=== PATIENT | female | born 1945 | race Caucasian/White ===

== ENCOUNTER 2018-07-10 11:30 | Outpatient (CLI) | payer MEDICARE, OTHER ==
--- NOTE | 2018-07-10 12:46 | XRAY Report ---
Reason: HIP PAIN,LEFT Procedure Date: 07/10/2018 Accession Number: [id number] / [id number] Procedure: WCP - Hip w/Pelvis 2-3V LT CPT Code: FULL RESULT: EXAM: LEFT HIP RADIOGRAPHY EXAM DATE: 07/10/2018 11:50 AM. CLINICAL HISTORY: Hip pain, left. COMPARISON: HIP 2 VIEW LT 07/05/2016 2:47 PM. TECHNIQUE: 2 views. FINDINGS: Bones: Normal. No fractures or bone lesion. Joints: Status post bilateral total hip arthroplasty. Unchanged from 2017 and seen on the AP view is the suggestion of a possible subtrochanteric periprosthetic fracture line laterally. Based on the appearance of the frog-leg view on today's study as well as the previous study, this appearance is possibly due to overlap of heterotopic bone. Otherwise, there is no definite evidence of hardware failure. Soft Tissues: Normal. No soft tissue swelling. IMPRESSION: Stable appearance of a periprosthetic lucency as described. If the patient's pain dates back to 2017, bone scan could be considered. Otherwise, there is no interval change to suggest new hardware loosening or fracture. RADIA
== END 2018-07-10 11:31 | disposition home or self-care (01) ==
LOC: DI.WCP 11:30
PROVIDERS: ATTEND Physician Assistant Medical
DX: M25.552 Pain in left hip (principal); Z96.642 Presence of left artificial hip joint

== ENCOUNTER 2018-07-18 12:00 | Outpatient (CLI) | payer MEDICARE, OTHER ==
--- NOTE | 2018-07-19 11:27 | Nuclear Medicine Report ---
Reason: HIP PAIN,LEFT Procedure Date: 07/18/2018 Accession Number: [id number] / [id number] Procedure: NM - Bone Limited CPT Code: FULL RESULT: EXAM: TRIPLE-PHASE BONE SCAN LIMITED EXAM DATE: 07/18/2018 04:07 PM. CLINICAL HISTORY: HIP PAIN,LEFT. COMPARISON: HIP W/PELVIS 2-3V LT 07/10/2018 11:25 AM. TECHNIQUE: Patient was injected with 32.7 mCi of technetium 99m MDP intravenously with flow phase gamma camera imaging anteriorly over the pelvis and hips, 5 seconds per frame for 1 minute. Subsequently, blood pool images of the pelvis and hips were obtained. The patient returned 3 hours later for multiple spot images of the pelvis and hips. FINDINGS: Flow Phase: There is symmetric flow to bilateral extremities. Blood Pool Phase: Images show no focal increased uptake. Delayed Phase: On bone scan images, there is asymmetrically greater activity around the left hip prosthesis compared to the right, particularly at the distal tip and in the greater trochanter region. IMPRESSION: 1. No abnormal hyperemia. 2. Delayed phase asymmetrically increased activity around the femoral component of the left hip prosthesis. Hardware loosening is a possibility for this pattern. RADIA
== END 2018-07-18 12:01 | disposition home or self-care (01) ==
LOC: DI 12:00
PROVIDERS: ATTEND Physician Assistant Medical
DX: M25.552 Pain in left hip (principal); Z96.643 Presence of artificial hip joint, bilateral
CPT/HCPCS: 78300

== ENCOUNTER 2018-07-18 17:19 | Outpatient (CLI) | payer MEDICARE, OTHER ==
--- NOTE | 2018-07-19 11:31 | XRAY Report ---
Reason: OSTEOARTHRITIS,HIP,LEFT Procedure Date: 07/18/2018 Accession Number: [id number] / [id number] Procedure: XR - Hip w/Pelvis 2-3V LT CPT Code: FULL RESULT: EXAM: LEFT HIP RADIOGRAPHY EXAM DATE: 07/18/2018 05:33 PM. CLINICAL HISTORY: Osteoarthritis, hip, left. COMPARISON: HIP W/PELVIS 2-3V LT 07/10/2018 11:25 AM. TECHNIQUE: 2 views. FINDINGS: The patient is status post bilateral total hip arthroplasty, stable appearance compared to prior. The previously seen subtrochanteric lucency on the left is not well seen on today's exam, the patient is osteopenic. No known fracture or dislocation. IMPRESSION: Stable configuration status post bilateral total hip arthroplasty. Previously questioned left sided lucency is not well seen on today's exam. RADIA
== END 2018-07-18 17:20 | disposition home or self-care (01) ==
LOC: DI 17:19
PROVIDERS: ATTEND Family Medicine
DX: M16.12 Unilateral primary osteoarthritis, left hip (principal)

== ENCOUNTER 2020-06-05 08:00 | Outpatient (CLI) | payer MEDICARE, OTHER ==
[2020-06-05 18:25] LABS: BASOPHILS % (AUTO) 0.7 %; EOSINOPHILS # (AUTO) 0.3 10^3/uL (0.0-0.7); EOSINOPHILS % (AUTO) 5.2 %; HCT - HEMATOCRIT 41.2 % (37.0-47.0); HGB - HEMOGLOBIN 13.5 g/dL (12.0-16.0); LYMPHOCYTES # (AUTO) 1.9 10^3/uL (1.5-3.5); LYMPHOCYTES % (AUTO) 30.3 %; MEAN CORPUSCULAR HGB CONC 32.8 g/dL (32.0-36.0); MEAN CORPUSCULAR VOLUME 94.7 fL (81.0-99.0); MEAN PLATELET VOLUME 10.7 fL (7.9-10.8); MONOCYTES # (AUTO) 0.6 10^3/uL (0.0-1.0); MONOCYTES % (AUTO) 9.3 %; NEUTROPHILS # (AUTO) 3.3 10^3/uL (1.5-6.6); NEUTROPHILS % (AUTO) 54.2 %; PLT - PLATELET COUNT 218 10^3/uL (130-450); RED BLOOD COUNT 4.35 10^6/uL (4.20-5.40); RED CELL DISTRIBUTION WIDTH 12.4 % (12.0-15.0); WHITE BLOOD COUNT 6.1 x10^3/uL (4.8-10.8)
[2020-06-05 19:03] LABS: THYROID STIMULATING HORMONE 1.42 uIU/mL (0.34-5.60)
[2020-06-05 19:07] LABS: ALBUMIN 4.5 g/dL (3.2-5.5); ALBUMIN/GLOBULIN RATIO 1.5 (1.0-2.2); BILIRUBIN,TOTAL 0.7 mg/dL (0.2-1.0); CREATININE 1.4 mg/dL (0.4-1.0); POTASSIUM 4.2 mmol/L (3.5-5.0); TOTAL PROTEIN 7.5 g/dL (6.7-8.2)
[2020-06-05 19:13] LABS: CALCIUM 12.2 mg/dL (8.5-10.3)
== END 2020-06-05 23:59 | disposition home or self-care (01) ==
LOC: LAB.WCP 08:00
PROVIDERS: ATTEND Physician Assistant Medical
DX: L65.9 Nonscarring hair loss, unspecified (principal); M16.12 Unilateral primary osteoarthritis, left hip; Z87.19 Personal history of other diseases of the digestive system
CPT/HCPCS: 36415; 80053; 84443; 85025

== ENCOUNTER 2020-10-23 08:00 | Outpatient (CLI) | payer MEDICARE ==
[2020-10-23 13:33] LABS: CALCIUM 11.9 mg/dL (8.5-10.3); POTASSIUM 4.7 mmol/L (3.5-5.0)
== END 2020-10-23 23:59 | disposition home or self-care (01) ==
LOC: LAB.WCP 08:00
PROVIDERS: ATTEND Physician Assistant Medical
DX: E83.52 Hypercalcemia (principal); N18.9 Chronic kidney disease, unspecified
CPT/HCPCS: 36415; 80048; 83970

== ENCOUNTER 2020-11-05 07:21 | Outpatient (CLI) | payer MEDICARE ==
--- NOTE | 2020-11-05 12:17 | XRAY Report ---
PROCEDURE: Hip w/Pelvis 2-3V LT INDICATIONS: OSTEOARTHRITIS HIP, LEFT TECHNIQUE: AP pelvis with lateral view(s) of the bilateral hip(s). COMPARISON: None. FINDINGS: Bones: Bilateral hip arthroplasty has been performed. Hardware is intact. No fractures or dislocatio ns. Pelvic ring appears intact. No suspicious bony lesions. Soft tissues: The visualized bowel gas pattern is normal. No suspicious soft tissue calcifications. IMPRESSION: Bilateral hip arthroplasty. No acute fracture. No osseous lesion. If symptoms and/or clin ical suspicion for pathology continue, further assessment with repeat plain films, or advanced imagin g (e.g., CT or bone scan) is recommended for further assessment. Reviewed by: Mynor Larios MD on 11/05/2020 12:15 PM PDT Approved by: Mynor Larios MD on 11/05/2020 12:15 PM PDT Station ID: [id number]
--- NOTE | 2020-11-05 14:45 | Nuclear Medicine Report ---
PROCEDURE: Bone 3-Phase INDICATIONS: Left hip pain. RADIOPHARMACEUTICAL: 26.0 mCi Tc-99m MDP IV. TECHNIQUE: Multiple bone scintigrams were obtained after intravenous injection of Tc-99m MDP, including flow, bl ood pool, and delayed images centered to the region of interest. COMPARISON: X-ray of the left hip, 11/05/2020, 07/18/2018. Bone scan, 3 phase, 04/18/2019 and 07/18/2018 . FINDINGS: A triple phase bone scan was obtained, including flow, blood pool and delayed images cente red to the hips. There are bilateral hip arthroplasties. Flow and blood pool images demonstrate symme trical muscular activity to hips. Delayed images demonstrate low level increased uptake around the hi p prostheses bilaterally, slightly more pronounced on the left than right, but unchanged in appearanc e when compared to the prior bone scans. The finding is most likely related to postsurgical change. N o scintigraphic findings to strongly suggest prosthesis loosening or infection. A focus of mildly inc reased uptake in the lower lumbar spine at right L4-L5 facet joint area is compatible with facet arth ropathy. IMPRESSION: 1. Bilateral hip arthroplasties. Low level increased uptake on delayed images is noted around hip pro stheses, unchanged from prior bone scans and most likely postsurgical in nature. No definitive scinti graphic findings to suggest prosthesis loosening or infection. No fracture. Reviewed by: Bety Nair MD on 11/05/2020 2:44 PM PDT Approved by: Bety Nair MD on 11/05/2020 2:44 PM PDT Station ID: [id number]
== END 2020-11-05 07:22 | disposition home or self-care (01) ==
LOC: DI 07:21
PROVIDERS: ATTEND Physician Assistant Medical
DX: M25.552 Pain in left hip (principal); M16.12 Unilateral primary osteoarthritis, left hip; Z96.643 Presence of artificial hip joint, bilateral
CPT/HCPCS: 78315

== ENCOUNTER 2020-12-09 12:15 | Outpatient (CLI) | payer MEDICARE ==
[2020-12-09 13:14] LABS: THYROID STIMULATING HORMONE 1.59 uIU/mL (0.34-5.60)
--- NOTE | 2020-12-09 13:26 | XRAY Report ---
PROCEDURE: Chest 2 View X-Ray INDICATIONS: LUNG CANCER/SARCOIDOSIS HYPERCALCEMIA TECHNIQUE: 2 view(s) of the chest. COMPARISON: None. FINDINGS: Surgical changes and devices: None. Lungs and pleura: No pleural effusions or pneumothorax. Lungs are clear. Mediastinum: Mediastinal contours are normal. Heart size is mildly prominent. Bones and chest wall: No suspicious bony abnormalities. Soft tissues appear unremarkable. IMPRESSION: No acute pulmonary process. Reviewed by: Nikki Aguilar MD on 12/09/2020 1:25 PM PDT Approved by: Nikki Aguilar MD on 12/09/2020 1:25 PM PDT Station ID: [id number]
[2020-12-11 14:10] LABS: TOTAL VOLUME 24HRS,URINE 2100 mL
[2020-12-11 14:22] LABS: TOTAL PROTEIN,URINE TIMED < 6 mg/dL
[2020-12-11 22:55] LABS: ALBUMIN 4.3 g/dL (3.8-4.8); ALPHA 1 GLOBULIN 0.3 g/dL (0.2-0.3); BETA 1 GLOBULIN 0.4 g/dL (0.4-0.6); BETA 2 GLOBULIN 0.3 g/dL (0.2-0.5); GAMMA GLOBULIN 0.8 g/dL (0.8-1.7)
== END 2020-12-09 12:16 | disposition home or self-care (01) ==
LOC: LAB 12:15 → DI 12:16
PROVIDERS: ATTEND Internal Medicine Nephrology
DX: C34.90 Malignant neoplasm of unspecified part of unspecified bronchus or lung (principal); E03.9 Hypothyroidism, unspecified; E55.9 Vitamin D deficiency, unspecified; E83.30 Disorder of phosphorus metabolism, unspecified; D47.2 Monoclonal gammopathy; E83.52 Hypercalcemia
CPT/HCPCS: 36415; 81599; 82306; 83519; 84100; 84155; 84156; 84165; 84443; 86334

== ENCOUNTER 2020-12-12 16:29 | Outpatient (CLI) | payer MEDICARE ==
--- NOTE | 2020-12-13 06:07 | Ultrasound Report ---
PROCEDURE: Retroperitoneal INDICATIONS: KIDNEY INJURY TECHNIQUE: Real-time scanning was performed of the retroperitoneal organs, with image documentation. COMPARISON: None. FINDINGS: Kidneys: Right kidney measures 9.9 cm long; left kidney measures 9.6 cm long. Right renal cortical thickness is 1.1 cm; left renal cortical thickness is 1.1 cm. The kidneys demonstrate mildly lobulat ed contours bilaterally. There is slightly increased renal cortical echogenicity bilaterally. No hydr onephrosis. There are 2 echogenic nonshadowing foci within the right kidney, measuring 0.6 cm in the superior pole and 0.4 cm in the inferior pole which are nonspecific and may represent possible obstru cting stones. Bladder: Initial bladder volume measures 84 mL. Postvoid bladder volume measures 56 mL. Bilateral ure teral jets visualized. No discrete filling defects in the bladder. IMPRESSION: 1. No evidence of hydronephrosis. 2. Slightly increased renal cortical echogenicity suggestive of medical renal disease. 3. Small nonshadowing echogenic foci within the right kidney are nonspecific and may reflect nonobstr ucting renal stones. 4. Postvoid residual volume of 56 mL. Reviewed by: Jann Fofana MD on 12/13/2020 6:05 AM PDT Approved by: Jann Fofana MD on 12/13/2020 6:05 AM PDT Station ID: [id number]
== END 2020-12-12 16:30 | disposition home or self-care (01) ==
LOC: DI 16:29
PROVIDERS: ATTEND Internal Medicine Nephrology
DX: N17.9 Acute kidney failure, unspecified (principal); R93.429 Abnormal radiologic findings on diagnostic imaging of unspecified kidney

== ENCOUNTER 2020-12-30 12:36 | Outpatient (CLI) | payer MEDICARE | END 2020-12-30 12:37 | disposition home or self-care (01) | LOC: LAB 12:36 | DX: E83.52 Hypercalcemia (principal) | CPT/HCPCS: 81599; 83519 ==

== ENCOUNTER 2021-01-09 11:30 | Outpatient (CLI) | payer OTHER ==
[2021-01-09 12:36] LABS: CALCIUM 11.3 mg/dL (8.5-10.3); CREATININE 1.9 mg/dL (0.4-1.0); PHOSPHORUS 2.8 mg/dL (2.5-4.6)
== END 2021-01-09 11:31 | disposition home or self-care (01) ==
LOC: LAB 11:30
PROVIDERS: ATTEND Internal Medicine Nephrology
DX: N05.9 Unspecified nephritic syndrome with unspecified morphologic changes (principal); E83.30 Disorder of phosphorus metabolism, unspecified; N25.81 Secondary hyperparathyroidism of renal origin
CPT/HCPCS: 36415; 80048; 83970; 84100

== ENCOUNTER 2021-01-20 11:10 | Outpatient (CLI) | payer MEDICARE ==
[2021-01-22 18:12] LABS: ALBUMIN 4.2 g/dL (3.8-4.8); ALPHA 1 GLOBULIN 0.3 g/dL (0.2-0.3); ALPHA 2 GLOBULIN 0.9 g/dL (0.5-0.9); BETA 1 GLOBULIN 0.4 g/dL (0.4-0.6); BETA 2 GLOBULIN 0.3 g/dL (0.2-0.5); GAMMA GLOBULIN 0.8 g/dL (0.8-1.7)
== END 2021-01-20 11:11 | disposition home or self-care (01) ==
LOC: LAB 11:10
PROVIDERS: ATTEND Internal Medicine Nephrology
DX: E55.9 Vitamin D deficiency, unspecified (principal); R80.9 Proteinuria, unspecified; I50.32 Chronic diastolic (congestive) heart failure; D47.2 Monoclonal gammopathy
CPT/HCPCS: 36415; 81599; 82040; 82306; 83880; 84155; 84165; 86334

== ENCOUNTER 2021-02-23 10:40 | Outpatient (CLI) | payer MEDICARE, OTHER ==
[2021-02-23 11:22] LABS: CALCIUM 11.7 mg/dL (8.5-10.3); CREATININE 1.9 mg/dL (0.4-1.0); POTASSIUM 4.2 mmol/L (3.5-5.0)
== END 2021-02-23 10:41 | disposition home or self-care (01) ==
LOC: LAB 10:40
PROVIDERS: ATTEND Internal Medicine Nephrology
DX: E83.52 Hypercalcemia (principal); N18.4 Chronic kidney disease, stage 4 (severe)
CPT/HCPCS: 36415; 80048; 83970

== ENCOUNTER 2021-02-28 14:19 | Outpatient (CLI) | payer MEDICARE, OTHER | END 2021-02-28 23:59 | disposition home or self-care (01) | LOC: LAB 14:19 | PROVIDERS: ATTEND Internal Medicine Nephrology | DX: E83.52 Hypercalcemia (principal) | CPT/HCPCS: 36415; 83519 ==

== ENCOUNTER 2021-12-06 11:40 | Outpatient (CLI) | payer MEDICARE | END 2021-12-06 11:41 | disposition EMS.NT | LOC: EMS 11:40 | DX: S09.90XA Unspecified injury of head, initial encounter (principal); W07.XXXA Fall from chair, initial encounter; Y92.009 Unspecified place in unspecified non-institutional (private) residence as the place of occurrence of the external cause ==